=== PATIENT | female | born 1990 | race Caucasian/White ===

== ENCOUNTER 2017-03-01 13:18 | Emergency (ER) | payer OTHER ==
--- NOTE | 2017-03-01 13:33 | EDM.PDOC ---
ED HPI GENERAL MEDICAL PROBLEM - General Chief Complaint: Abdominal Pain Stated Complaint: STOMACH PAIN Time Seen by Provider: 03/01/17 13:18 Source of Information: Reports: Patient, Family History Limitations: Reports: No Limitations - History of Present Illness INITIAL COMMENTS - FREE TEXT/NARRATIVE: 26 years old w f came to the ed 2 days after she noticed pain with urination at her left lower abdomen. Denies , denies trauma. no N/V/D or any other acute medical issue at this time. 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 no blood. Onset Date: 02/27/17 Onset Time: 08:00 Duration: Day(s):, Intermittent Location: Reports: Pelvis Quality: Reports: Ache, Burning Improves with: Reports: None Worsens with: Reports: None Associated Symptoms: Reports: No Other Symptoms Left Lower Abdomen Pain Score (Numeric/FACES): 5 - Related Data Allergies Allergy/AdvReac Type Severity Reaction Status Date / Time azithromycin AdvReac Hives Verified 03/01/17 13:27 Sulfa (Sulfonamide AdvReac Hives Verified 03/01/17 13:27 Antibiotics) Home Meds: Home Meds . [Unable to Verify Home Med List] 03/01/17 [History] ED ROS GENERAL - Review of Systems Review Of Systems: See Below Constitutional: Reports: No Symptoms HEENT: Reports: No Symptoms Respiratory: Reports: No Symptoms Cardiovascular: Reports: No Symptoms Endocrine: Reports: No Symptoms GI/Abdominal: Reports: Abdominal Pain (LLQ of abdomen) : Reports: Dysuria Musculoskeletal: Reports: No Symptoms Skin: Reports: No Symptoms Neurological: Reports: No Symptoms Psychiatric: Reports: No Symptoms Hematologic/Lymphatic: Reports: No Symptoms Immunologic: Reports: No Symptoms ED EXAM, GI/ABD - Physical Exam Exam: See Below Exam Limited By: No Limitations General Appearance: Alert, WD/WN, Mild Distress Eyes: Bilateral: Normal Appearance Ears: Normal External Exam Nose: Normal Inspection Throat/Mouth: Normal Inspection Head: Atraumatic, Normocephalic Neck: Normal Inspection, Supple, Non-Tender Respiratory/Chest: No Respiratory Distress, Lungs Clear Cardiovascular: Normal Peripheral Pulses, Regular Rate, Rhythm GI/Abdominal: Tenderness (LLQ of abdomen. ) (Female) Exam: Deferred Rectal (Female) Exam: Deferred Back Exam: Normal Inspection, Full Range of Motion Extremities: Normal Inspection, Normal Range of Motion, Non-Tender Neurological: Alert, Oriented, CN II-XII Intact, Normal Cognition, Normal Gait Psychiatric: Normal Affect, Normal Mood Skin Exam: Warm, Dry, Intact, Normal Color, No Rash Course - Vital Signs Text/Narrative:: 26 years old w f came to the ed 2 days after she noticed pain with urination at her left lower abdomen. Denies , denies trauma. nop N/V/D or any other acute medical issue at this time. 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 pain, tender to pal. 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 Plan: US of pelvis, no available today at this ED in [place], as the pt is from [place]. Percocet a for severe pain (to take package). D/C home with instructions. Last Recorded V/S: Last Vital Signs Temp 36.4 C 03/01/17 14:40 Pulse 56 L 03/01/17 14:40 Resp 20 03/01/17 14:40 BP 120/56 L 03/01/17 14:40 Pulse Ox 100 03/01/17 14:40 - Orders/Labs/Meds Orders: Active Orders 24 hr Category Date Time Status Abdomen Pelvis wo Cont [CT] Stat Exams 03/01/17 14:01 Taken Saline Lock Insert [OM.PC] Routine Oth 03/01/17 14:09 Ordered Labs: Laboratory Tests 03/01/17 03/01/17 03/01/17 Range/Units 13:45 13:45 14:15 WBC 8.6 (4.5-12.0) X10-3/uL RBC 4.28 (3.23-5.20) x10(6)uL Hgb 12.7 (11.5-15.5) g/dL Hct 37.0 (30.0-51.3) % MCV 86.5 (80-96) fL MCH 29.6 (27.7-33.6) pg MCHC 34.2 (32.2-35.4) g/dL RDW 12.0 (11.5-15.5) % Plt Count 254 (125-369) X10(3)uL MPV 8.4 (7.4-10.4) fL Neut % (Auto) 65.8 (46-82) % Lymph % (Auto) 23.0 (13-37) % [place] % (Auto) 8.8 (4-12) % Eos % (Auto) 2 (1.0-5.0) % Baso % (Auto) 0 (0-2) % Neut # (Auto) 5.6 (1.6-8.3) # Lymph # (Auto) 2.0 (0.6-5.0) # [place] # (Auto) 0.8 (0.0-1.3) # Eos # (Auto) 0.2 (0.0-0.8) # Baso # (Auto) 0.0 (0.0-0.2) # Sodium (135-145) mmol/L Potassium (3.5-5.3) mmol/L Chloride (100-110) mmol/L Carbon Dioxide (23-29) mmol/L BUN (5-20) mg/dL Creatinine (0.6-1.3) mg/dL Est Cr Clr Drug Dosing mL/min Estimated GFR (MDRD) (>60) BUN/Creatinine Ratio (9-20) Glucose (80-116) mg/dL Calcium (8.6-10.2) mg/dL Urine Color Yellow (YELLOW) Urine Appearance Slightly cloudy (CLEAR) Urine pH 5.0 (5.0-6.5) Ur Specific [place] 1.025 (1.010-1.025) Urine Protein Negative (NEGATIVE) mg/dL Urine Glucose (UA) Normal (NEGATIVE) mg/dL Urine Ketones Negative (NEGATIVE) mg/dL Urine Occult Blood Negative (NEGATIVE) Urine Nitrite Negative (NEGATIVE) Urine Bilirubin Negative (NEGATIVE) Urine Urobilinogen Normal (NEGATIVE) mg/dL Ur Leukocyte Esterase Negative (NEGATIVE) Urine RBC 0-5 (0) Urine WBC 0-5 (0) Ur Squamous Epith Cells Many H (NS,R,O) Urine Bacteria Moderate H (NS) Urine Mucus Moderate H (NS) Urine HCG, Qual Negative (NEGATIVE) 03/01/17 Range/Units 14:15 WBC (4.5-12.0) X10-3/uL RBC (3.23-5.20) x10(6)uL Hgb (11.5-15.5) g/dL Hct (30.0-51.3) % MCV (80-96) fL MCH (27.7-33.6) pg MCHC (32.2-35.4) g/dL RDW (11.5-15.5) % Plt Count (125-369) X10(3)uL MPV (7.4-10.4) fL Neut % (Auto) (46-82) % Lymph % (Auto) (13-37) % [place] % (Auto) (4-12) % Eos % (Auto) (1.0-5.0) % Baso % (Auto) (0-2) % Neut # (Auto) (1.6-8.3) # Lymph # (Auto) (0.6-5.0) # [place] # (Auto) (0.0-1.3) # Eos # (Auto) (0.0-0.8) # Baso # (Auto) (0.0-0.2) # Sodium 138 (135-145) mmol/L Potassium 3.8 (3.5-5.3) mmol/L Chloride 105 (100-110) mmol/L Carbon Dioxide 26 (23-29) mmol/L BUN 15 (5-20) mg/dL Creatinine 0.7 (0.6-1.3) mg/dL Est Cr Clr Drug Dosing 126.16 mL/min Estimated GFR (MDRD) > 60 (>60) BUN/Creatinine Ratio 21.4 H (9-20) Glucose 88 (80-116) mg/dL Calcium 9.6 (8.6-10.2) mg/dL Urine Color (YELLOW) Urine Appearance (CLEAR) Urine pH (5.0-6.5) Ur Specific [place] (1.010-1.025) Urine Protein (NEGATIVE) mg/dL Urine Glucose (UA) (NEGATIVE) mg/dL Urine Ketones (NEGATIVE) mg/dL Urine Occult Blood (NEGATIVE) Urine Nitrite (NEGATIVE) Urine Bilirubin (NEGATIVE) Urine Urobilinogen (NEGATIVE) mg/dL Ur Leukocyte Esterase (NEGATIVE) Urine RBC (0) Urine WBC (0) Ur Squamous Epith Cells (NS,R,O) Urine Bacteria (NS) Urine Mucus (NS) Urine HCG, Qual (NEGATIVE) Meds: Medications Discontinued Medications Generic Name Dose Route Start Last Admin Trade Name Freq PRN Reason Stop Dose Admin Ketorolac Tromethamine 30 mg 03/01/17 14:05 03/01/17 14:12 Toradol IVPUSH 03/01/17 14:06 30 mg ONETIME ONE Administration Sodium Chloride 10 ml 03/01/17 14:09 03/01/17 14:13 Saline Flush FLUSH 10 ml ASDIRECTED PRN Administration Keep Vein Open Departure - Departure Time of Disposition: 14:45 Disposition: Home, Self-Care 01 Condition: Fair Clinical Impression: LLQ abdominal pain - Discharge Information Instructions: Abdominal Pain, Adult, [id number] Referrals: PCP,Not In Area [Primary Care Provider] - Forms: ED Department Discharge Additional Instructions: Please take motrin for moderate pain, percocet for severe pain. Please f/u at your clinic in [place] for a pelvic Ultrasound a.s.a. possible, which is not available today at [place]. Please come back to the ed if your symptoms get worse acutely. - My Orders Last 24 Hours: My Active Orders 03/01/17 14:01 Abdomen Pelvis wo Cont [CT] Stat 03/01/17 14:09 Saline Lock Insert [OM.PC] Routine - Assessment/Plan Last 24 Hours: My Active Orders 03/01/17 14:01 Abdomen Pelvis wo Cont [CT] Stat 03/01/17 14:09 Saline Lock Insert [OM.PC] Routine
[2017-03-01] MEDS ORDERED: Ketorolac 30 MG/ML SDV IVPUSH ONE (14:05)
[2017-03-01] MEDS: Sodium Chloride 0.9% 10 ML Syringe FLUSH PRN ×2 (14:11→14:13)
[2017-03-01] MEDS ORDERED: Acetaminophen/oxyCODONE 325-5 MG Tab PO ONE (14:46)
[2017-03-01 14:56] VITALS: BP 120/56
== END 2017-03-01 14:50 | disposition home or self-care (01) ==
LOC: FB.ED 13:18
DX: R10.32 Left lower quadrant pain (principal); N85.2 Hypertrophy of uterus; R30.0 Dysuria
CPT/HCPCS: 36415; 74176; 80048; 81001; 81025; 85025; 96372; 99284; A9270; J1885; J7050